=== PATIENT | female | born 1975 | race Caucasian/White ===

== ENCOUNTER 2020-06-01 14:30 | Outpatient (CLI) | payer BC | END 2020-06-01 23:59 | disposition home health service (06) | LOC: WOU 14:30 | PROVIDERS: ATTEND Surgery | DX: T25.312A Burn of third degree of left ankle, initial encounter (principal); T31.0 Burns involving less than 10% of body surface; Y65.8 Other specified misadventures during surgical and medical care; Y82.8 Other medical devices associated with adverse incidents; Y92.89 Other specified places as the place of occurrence of the external cause; G90.522 Complex regional pain syndrome I of left lower limb; E66.3 Overweight; Z68.37 Body mass index [BMI] 37.0-37.9, adult; E03.9 Hypothyroidism, unspecified | CPT/HCPCS: 87070-TC; 87075-TC ==